=== PATIENT | female | born 2000 | race African-American/Black ===

== ENCOUNTER 2023-05-19 12:00 | Emergency (ER) | payer OTHER ==
[2023-05-19 12:05] VITALS: BP 109/68; PULSE 72; RESP 18; TEMP 97; BMI 24.1
[2023-05-19] MEDS ORDERED: ACETAMINOPHEN 500 MG TABLET (FP) PO ONE (12:42)
[2023-05-19] MEDS ORDERED: KETOROLAC TROMETHAMINE 30 MG/1 ML VIAL IM ONE (12:42)
[2023-05-19] MEDS ORDERED: LIDOCAINE 5% TOPICAL PATCH TP ONE (12:43)
[2023-05-19] MEDS ORDERED: ACETAMINOPHEN 325 MG TABLET (FP) ONE (12:49)
[2023-05-19] MEDS ORDERED: KETOROLAC TROMETHAMINE 30 MG/1 ML VIAL ONE (12:49)
[2023-05-19] MEDS ORDERED: LIDOCAINE 5% TOPICAL PATCH ONE (12:49)
[2023-05-19] MEDS ORDERED: LIDOCAINE PATCH REMOVAL MC SCH (22:00)
== END 2023-05-19 13:28 | disposition home or self-care (01) ==
LOC: JERFT 12:00
PROC: 3E0233Z Introduction of Anti-inflammatory into Muscle, Percutaneous Approach (ICD-10-PCS; principal; 2023-05-19)
DX: M54.6 Pain in thoracic spine (principal); V49.09XA Driver injured in collision with other motor vehicles in nontraffic accident, initial encounter; Y92.410 Unspecified street and highway as the place of occurrence of the external cause
CPT/HCPCS: 84703; 99284-25